=== PATIENT | male | born 1990 | race Caucasian/White ===

== ENCOUNTER 2023-11-06 18:17 | Emergency (ER) | payer SELFPAY ==
[~2023-11-06] VITALS: Ht 167 cm; Wt 70.0 kg
--- NOTE | 2023-11-06 18:35 | ED EENT ---
History of Present Illness General Chief Complaint: Oral/Throat Problems Stated Complaint: SOMETHING IRRITATING THROAT/DIFFICULT TO SWALLOW Source: patient Exam Limitations: no limitations History of Present Illness Date Seen by Provider: Nov 06, 2023 Time Seen by Provider: 18:32 Initial Comments Patient is a 33-year-old male who presents to the ED sore throat difficulty swallowing. Symptoms started yesterday after eating a sandwich. Hostetter like so mething got stuck in his throat. Patient states he attempted to cough to get this out but was unsuccessful. He feels like every time he turns his neck he feels something move inside his throat. He reports difficulty swallowing difficulty breathing. Attempted to vomit to get the foreign body out but still feels like something is stuck. States he has been able to eat and drink. This pain became worse 45 minutes ago. Denies of any tongue swelling, neck swelling, neck redness, fever, chills, headache, dizziness. Denies of any known allergies. Denies any flulike symptoms. No evidence of hoarseness. Tolerating secretions. Allergies and Home Medications Allergies Coded Allergies: No Known Drug Allergies (Unverified , 11/06/23) Patient Home Medication List Home Medication List Reviewed: Yes Review of Systems Review of Systems Constitutional: No chills, No diaphoresis, No fever, No malaise, No weakness Eyes: Denies Blurred Vision, Denies Drainage, Denies Decreased Acuity Ears: Denies Dizziness, Denies Pain Nose: denies clots, denies congestion Mouth: denies clots, denies loose teeth Throat: pain, swelling; denies neck stiffness; painful swallowing; denies difficulty with fluids Respiratory: No cough, No dyspnea on exertion, No hemoptysis, No orthopnea Cardiovascular: No chest pain Gastrointestinal: No abdominal pain, No dysphagia, No nausea, No vomiting Musculoskeletal: No back pain, No joint pain Skin: No change in color, No change in hair/nails Physical Exam Vital Signs Vital Signs - First Documented 11/06/23 18:23 Temp 36.7 Pulse 83 Resp 20 B/P (MAP) 152/110 (124) Pulse Ox 98 O2 Delivery Room Air Height, Weight, BMI Height: '" Weight: lbs. oz. kg; BMI Method: General Appearance: WD/WN, no apparent distress Eyes: bilateral eye normal inspection, bilateral eye PERRL, bilateral eye EOMI Ears: bilateral ear auricle normal, bilateral ear canal normal, bilateral ear TM normal Nose: normal inspection Mouth/Throat: normal mouth inspection, pharynx normal Neck: non-tender, full range of motion, supple Cardiovascular: regular rate, rhythm, no edema, no gallop, no JVD Respiratory: chest non-tender, lungs clear, normal breath sounds, no respirator y distress, no accessory muscle use Gastrointestinal: normal bowel sounds, non tender, soft, no organomegaly 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, no motor/sensory deficits, alert, normal mood/affect, oriented x 3 Skin: normal color, warm/dry Progress/Results/Core Measures Results/Orders Lab Results Laboratory Tests Test 11/06/23 18:40 Range/Units White Blood Count 6.5 4.3-11.0 10^3/uL Red Blood Count 5.75 H 4.30-5.52 10^6/uL Hemoglobin 16.0 13.3-17.7 g/dL Hematocrit 48 40-54 % Mean Corpuscular Volume 83 80-99 fL Mean Corpuscular Hemoglobin 28 25-34 pg Mean Corpuscular Hemoglobin Concent 33 32-36 g/dL Red Cell Distribution Width 13.2 10.0-14.5 % Platelet Count 318 130-400 10^3/uL Mean Platelet Volume 9.6 9.0-12.2 fL Immature Granulocyte % (Auto) 0 % Neutrophils (%) (Auto) 55 42-75 % Lymphocytes (%) (Auto) 34 12-44 % Monocytes (%) (Auto) 9 0-12 % Eosinophils (%) (Auto) 1 0-10 % Basophils (%) (Auto) 1 0-10 % Neutrophils # (Auto) 3.6 1.8-7.8 10^3/uL Lymphocytes # (Auto) 2.2 1.0-4.0 10^3/uL Monocytes # (Auto) 0.6 0.0-1.0 10^3/uL Eosinophils # (Auto) 0.1 0.0-0.3 10^3/uL Basophils # (Auto) 0.0 0.0-0.1 10^3/uL Immature Granulocyte # (Auto) 0.0 0.0-0.1 10^3/uL Sodium Level 140 135-145 MMOL/L Potassium Level 3.7 3.6-5.0 MMOL/L Chloride Level 103 98-107 MMOL/L Carbon Dioxide Level 22 21-32 MMOL/L Anion Gap 15 H 5-14 MMOL/L Blood Urea Nitrogen 14 7-18 MG/DL Creatinine 1.11 0.60-1.30 MG/DL Estimat Glomerular Filtration Rate 90 BUN/Creatinine Ratio 13 Glucose Level 108 H 70-105 MG/DL Calcium Level 10.4 H 8.5-10.1 MG/DL Corrected Calcium 8.5-10.1 MG/DL Total Bilirubin 0.9 0.1-1.0 MG/DL Aspartate Amino Transf (AST/SGOT) 55 H 5-34 U/L Alanine Aminotransferase (ALT/SGPT) 38 0-55 U/L Alkaline Phosphatase 76 40-136 U/L Total Protein 9.6 H 6.4-8.2 GM/DL Albumin 5.2 H 3.2-4.5 GM/DL Group A Streptococcus Screen Not Detected NotDetected My Orders Orders - PRINCESS MESA Cbc And Automated Diff (11/06/23 18:29) Comprehensive Metabolic Panel (11/06/23 18:29) Rapid Strep A Screen (11/06/23 18:29) Ct Neck (Soft Tissue) W (11/06/23 18:29) Iohexol Injection (Omnipaque 350 Mg/Ml 1 (11/06/23 19:15) Ns (Ivpb) 100 Ml (Sodium Chloride 0.9% 1 (11/06/23 19:15) Lidocaine 2% Viscous 15 Ml (Xylocaine Vi (11/06/23 19:45) Antacid Suspension (Antacid Suspension (11/06/23 19:45) Medications Given in ED Current Medications Medications Dose Ordered Sig/Lizbeth Route Start Time Stop Time Status Last Admin Dose Admin Al Hydrox/Mg Hydrox/Simethicone 30 ml ONCE ONCE PO 11/06/23 19:45 11/06/23 19:46 DC 11/06/23 19:42 30 ML Iohexol 100 ml ONCE ONCE IV 11/06/23 19:15 11/06/23 19:16 DC 11/06/23 19:18 75 ML Lidocaine HCl 15 ml ONCE ONCE PO 11/06/23 19:45 11/06/23 19:46 DC 11/06/23 19:42 15 ML Sodium Chloride 100 ml ONCE ONCE IV 12/11/23 19:15 11/06/23 19:16 DC 11/06/23 19:18 80 ML Vital Signs/I&O 11/06/23 11/06/23 18:23 20:21 Temp 36.7 36.5 Pulse 83 79 Resp 20 16 B/P (MAP) 152/110 (124) 127/95 Pulse Ox 98 100 O2 Delivery Room Air Room Air Departure Communication (PCP) Patient is a 33-year-old male who presents ED difficulty swallowing. Reports pain with swallowing. This occurred after eating a sandwich. Denies eating any thing that contain bones. Differential diagnosis foreign body, strep throat, retropharyngeal abscess, thyromegaly esophageal stricture. States he has been eating and drinking but he has to turn his head to the side as he feels something move. Exam of oropharynx did not note any obvious foreign body. No uvula deviation. Possible small area of tissue dangling around the uvula. Most the patient's pain appears to be retropharyngeal. CBC, CMP CRP CT scan of the neck with contrast. No evidence of stridor. Is not hypoxic or tachycardic or febrile. CBC, CMP was grossly unremarkable. Strep negative. CT neck of the soft tissues with contrast was negative for abscess, stricture, foreign body. He was able to drink fluids but when he hold his chin down to attempt to drink he was having difficulty and had to move his next to the side. Wonder if this has to do to with the tissue. At this time recommend general surgery outpatient follow-up. Provided this in discharge instructions. I did give him GI cocktail with some improvement. Continue with clear liquids soft foods. If any worsening symptoms return back to ED for further evaluation. Impression Primary Impression: Throat pain Disposition: HOME, SELF-CARE Condition: Stable Departure-Patient Inst. Decision time for Depature: 20:17 Referrals: [facility]UD[facility]W DO NO,LOCAL PHYSICIAN (PCP) Primary Care Physician Patient Instructions: Sore Throat, Adult (DC) Add. Discharge Instructions: Need to follow-up with general surgery for further evaluation. Recommend Tums, anti-inflammatories. All discharge instructions reviewed with patient and/or family. Voiced understanding. PRINCESS MESA Nov 06, 2023 18:35
[2023-11-06 18:50] LABS: BASOPHILS % (AUTO) 1 % (0-10); EOSINOPHILS # (AUTO) 0.1 10^3/uL (0.0-0.3); EOSINOPHILS % (AUTO) 1 % (0-10); HEMATOCRIT 48 % (40-54); LYMPHOCYTES # (AUTO) 2.2 10^3/uL (1.0-4.0); LYMPHOCYTES % (AUTO) 34 % (12-44); MEAN CORPUSCULAR HEMOGLOBIN 28 pg (25-34); MEAN CORPUSCULAR HGB CONC 33 g/dL (32-36); MEAN CORPUSCULAR VOLUME 83 fL (80-99); MEAN PLATELET VOLUME 9.6 fL (9.0-12.2); MONOCYTES # (AUTO) 0.6 10^3/uL (0.0-1.0); MONOCYTES % (AUTO) 9 % (0-12); NEUTROPHILS # (AUTO) 3.6 10^3/uL (1.8-7.8); NEUTROPHILS % (AUTO) 55 % (42-75); PLATELET COUNT 318 10^3/uL (130-400); WHITE BLOOD COUNT 6.5 10^3/uL (4.3-11.0)
[2023-11-06 18:59] LABS: ALBUMIN 5.2 GM/DL (3.2-4.5)
[2023-11-06 19:00] LABS: CHLORIDE 103 MMOL/L (98-107); POTASSIUM 3.7 MMOL/L (3.6-5.0); SODIUM 140 MMOL/L (135-145)
[2023-11-06 19:01] LABS: CALCIUM 10.4 MG/DL (8.5-10.1)
[2023-11-06 19:02] LABS: GLUCOSE 108 MG/DL (70-105); TOTAL PROTEIN 9.6 GM/DL (6.4-8.2)
[2023-11-06 19:03] LABS: CARBON DIOXIDE 22 MMOL/L (21-32)
[2023-11-06 19:04] LABS: BILIRUBIN,TOTAL 0.9 MG/DL (0.1-1.0)
[2023-11-06 19:05] LABS: ALKALINE PHOSPHATASE 76 U/L (40-136)
[2023-11-06 19:06] LABS: CREATININE SERUM 1.11 MG/DL (0.60-1.30); GFR ESTIMATED 90
[2023-11-06 19:07] LABS: BUN/CREATININE RATIO 13
[2023-11-06 19:08] LABS: ALANINE AMINOTRANSFERASE 38 U/L (0-55)
[2023-11-06] MEDS ORDERED: IOHEXOL 350 MG/ML 100 ML (OMNIPAQUE 350) VIAL IV ONE (19:15)
[2023-11-06] MEDS ORDERED: NS 100 ML (IVPB) BAG IV ONE (19:15)
--- NOTE | 2023-11-06 19:30 | Diagnostic Imaging Report ---
PROCEDURE: CT neck soft tissue with contrast. TECHNIQUE: Multiple contiguous axial images were obtained through the neck after the administration of contrast. Auto Exposure Controls were utilized during the CT exam to meet ALARA standards for radiation dose reduction. INDICATION: 33-year-old male has a sensation of something stuck in his throat for one day. COMPARISONS: None FINDINGS: The visualized sinuses appear well pneumatized. Orbits including both globes, retroorbital, extraconal, conal and intraconal spaces are normal. Skull base shows normal attenuation. The visualized vasculature shows a normal visualized portion of the intracranial circulation. The nasopharynx, oropharynx, hypopharynx, laryngopharynx are grossly unremarkable. The parapharyngeal and paraspinous soft tissues are normal. Lung apices are clear. Superior mediastinum is unremarkable. The cervical vertebral bodies show normal alignment. There is no evidence of acute fracture or acute subluxation seen. IMPRESSION: 1. Unremarkable postcontrast CT soft tissues neck. 2. Unremarkable CT cervical spine. Additional nonemergent findings as described above. Dictated by: Dictated on workstation # [id number]
[2023-11-06] MEDS ORDERED: LIDOCAINE 2% VISCOUS 15 ML UDC PO ONE (19:45)
[2023-11-06] MEDS ORDERED: ANTACID SUSPENSION 30 ML UDC PO ONE (19:45)
[2023-11-06 20:21] VITALS: BP 127/95
== END 2023-11-06 20:24 | disposition home or self-care (01) ==
LOC: ER 18:21
DX: R07.0 Pain in throat (principal)
CPT/HCPCS: 36415; 70491; 80053; 85025; 87430